=== PATIENT | male | born 1985 ===

== ENCOUNTER 2017-01-04 11:52 | Emergency (ER) | payer OTHER ==
[2017-01-04 11:56] VITALS: BMI 31.3
[2017-01-04 11:59] VITALS: RESP 18; O2SAT 100
[2017-01-04] MEDS ORDERED: Sodium Chloride 0.9% 1,000 ML IV ONE (12:33)
--- NOTE | 2017-01-04 12:33 | C.PDOC ---
History Of Present Illness 32 year old male presents to the emergency department with complaints of intermittent LLQ pain that radiates to groin for two days. Patient notes difficulty urinating and loose bowel today. He denies fever, chills, nausea, vomiting, back pain, or any similar symptoms. Time Seen by Provider: 01/04/17 11:55 Chief Complaint (Nursing): Abdominal Pain History Per: Patient History/Exam Limitations: no limitations Onset/Duration Of Symptoms: Days (2 days ) Current Symptoms Are (Timing): Still Present Location Of Pain/Discomfort: LLQ Radiation Of Pain To:: Other (groin) Quality Of Discomfort: "Pain" Associated Symptoms: Diarrhea, Other (difficulty urinating). denies: Fever, Chills, Nausea, Vomiting Last Bowel Movement: Today Recent travel outside of the [place]: No Past Medical History Reviewed: Historical Data, Nursing Documentation, Vital Signs Vital Signs: Last Vital Signs Temp 98.0 F 01/04/17 11:58 Pulse 70 01/04/17 11:58 Resp 18 01/04/17 11:58 BP 143/78 01/04/17 11:58 Pulse Ox 100 01/04/17 16:47 Surgical History: Appendectomy (2013) - [employer] Procedures LAPAROSCOP APPENDECTOMY (01/04/14) TETANUS TOXOID ADMINIST (11/29/13) Family History: States: Unknown Family Hx - Social History Hx Tobacco Use: No Hx Alcohol Use: No Hx Substance Use: No - Immunization History Hx Tetanus Toxoid Vaccination: No Hx Influenza Vaccination: No Hx Pneumococcal Vaccination: No Review Of Systems Constitutional: Negative for: Fever, Chills Cardiovascular: Negative for: Chest Pain Respiratory: Negative for: Shortness of Breath Gastrointestinal: Positive for: Abdominal Pain (LLQ pain ). Negative for: Nausea, Vomiting Genitourinary: Positive for: Other (difficulty urinating) Musculoskeletal: Positive for: Other (groin pain radiating from LLQ pain ) Physical Exam - Physical Exam Appears: Non-toxic, No Acute Distress Skin: Warm, Dry Head: Atraumatic Eye(s): bilateral: Normal Inspection, PERRL, EOMI Oral Mucosa: Moist Chest: Symmetrical, No Deformity Cardiovascular: Rhythm Regular Respiratory: Normal Breath Sounds, No Rales, No Rhonchi, No Wheezing Gastrointestinal/Abdominal: Bowel Sounds (hypoactive bowel sounds ), Soft, Tenderness (mild left lower abdominal tenderness near pelvis ), No Distention, No Guarding, No Rebound Extremity: Normal ROM, No Tenderness ED Course And Treatment - Laboratory Results Result Diagrams: 01/04/17 12:41 01/04/17 12:41 O2 Sat by Pulse Oximetry: 100 (room air ) - CT Scan/US CT Abdomen and Pelvis without intravenous contrast Other Rad Studies (CT/US): Read By Radiologist, Radiology Report Reviewed CT/US Interpretation: LOWER THORAX: The lung bases are clear. LIVER: The liver is enlarged and measures 24 cm in craniocaudad dimension. There is diffuse low-attenuation in the liver. No focal mass or ductal dilatation. GALLBLADDER AND BILE DUCTS: There are no calcified gallstones, wall thickening or pericholecystic fluid. PANCREAS: The pancreas is normal in size. No gross lesion or ductal dilatation. SPLEEN: There is borderline splenomegaly. ADRENALS: Both adrenal glands are normal in size without discrete nodule. . KIDNEYS AND URETERS: Both kidneys are normal in size without hydronephrosis or nephrolithiasis. The ureters are not dilated. VASCULATURE: No aortic aneurysm. BOWEL: There is mild dilatation of fluid-filled proximal jejunal loops. The mid and distal small bowel loops are normal in caliber. . There is mild left colonic diverticulosis without CT evidence for acute diverticulitis. APPENDIX: There are surgical clips in the right lower quadrant adjacent to this from in keeping with prior appendectomy. PERITONEUM: No free fluid. No free air. LYMPH NODES: There are prominent subcentimeter mesenteric lymph nodes in the right side of the abdomen. BLADDER: Normal in appearance. REPRODUCTIVE: The prostate gland is normal in size. BONES: No acute fracture. Within normal limits for the patient's age. OTHER FINDINGS: None. IMPRESSION: 1. Mild dilatation of fluid-filled proximal jejunal loops could be related to nonspecific infectious/ inflammatory enteritis. Prominent subcentimeter mesentery lymph nodes in the right abdomen could represent nonspecific reactive lymphadenitis. 2. Moderate hepatomegaly and hepatic steatosis. Borderline splenomegaly. 3. No evidence of nephrolithiasis or obstructive uropathy. Progress Note: Toradol and IV fluids given. CT abdomen and pelvis without contrast ordered. Medical Decision Making Medical Decision Making: pt reports pain decreased with toradol, non tender on re-exam of abdomen. will tx pt for enteritis/diverticuloisis with cipro and flagyl and f/u in med clinic next week. Disposition Counseled Patient/Family Regarding: Studies Performed, Diagnosis, Need For Followup, Rx Given - Disposition Referrals: [facility] [Outside] Disposition: HOME/ ROUTINE Disposition Time: 16:36 Condition: STABLE Additional Instructions: [place] los medicamentos segn lo prescrito. Seguimiento en la clnica mdica la pr xima semana-llamar para cinthya elder ,. [place] ibuprofeno para el dolor si es necesario. Vuelva a ER para cualquier dolor peor, fiebre, vmito. Prescriptions: Ciprofloxacin HCl [Cipro] 500 mg PO BID #14 tablet Ibuprofen [Motrin] 600 mg PO TID #30 tab Metronidazole [Flagyl] 500 mg PO TID #21 tablet Instructions: Diverticulitis (ED), Enteritis (ED) Forms: [employer] (Urdu) - Clinical Impression Clinical Impression: Enteritis, Diverticulosis of colon - Scribe Statement The provider has reviewed the documentation as recorded by the Scribe Olya Cuevas All medical record entries made by the Scribe were at my direction and personally dictated by me. I have reviewed the chart and agree that the record accurately reflects my personal performance of the history, physical exam, medical decision making, and the department course for this patient. I have also personally directed, reviewed, and agree with the discharge instructions and disposition.
[2017-01-04] MEDS ORDERED: Sodium Chloride 0.9% 1,000 ML ONE (12:42)
[2017-01-04 12:44] LABS: BASO # 0.1 K/uL (0.0-0.2); BASO % 1.1 % (0.0-2.0); EOS # 0.1 K/uL (0.0-0.7); EOS % 2.3 % (0.0-4.0); HEMATOCRIT 45.8 % (35.0-51.0); LYMPH # 1.9 K/uL (1.0-4.3); LYMPH % 30.6 % (20.0-40.0); MEAN CELL VOLUME 88.1 fL (80.0-94.0); MEAN CORPUSCULAR HEMOGLOBIN 31.3 pg (27.0-31.0); MEAN CORPUSCULAR HGB CONC 35.5 g/dL (33.0-37.0); MEAN PLATELET VOLUME 8.3 fL (7.2-11.7); MONO # 0.4 K/uL (0.0-0.8); MONO % 6.3 % (0.0-10.0); NRBC % 0.1 % (0.0-2.0); RED CELL DISTRIBUTION WIDTH 12.6 % (11.5-14.5); WHITE BLOOD COUNT 6.1 K/uL (4.8-10.8)
[2017-01-04 12:46] LABS: RBC URINE < 1 /hpf (0-3); URINE BILIRUBIN NEGATIVE (NEGATIVE); URINE BLOOD NEGATIVE (NEGATIVE); URINE COLOR Yellow (YELLOW); URINE GLUCOSE (UA) NORMAL (Normal); URINE KETONE NEGATIVE (NEGATIVE); URINE LEUKOCYTE ESTERASE NEG Leu/uL (Negative); URINE PROTEIN 1+ mg/dL (NEGATIVE); URINE UROBILINOGEN NORMAL mg/dL (0.2-1.0); WBC URINE < 1 /hpf (0-5)
[2017-01-04 12:52] LABS: CHLORIDE 99 mmol/L (98-107)
[2017-01-04 12:53] LABS: POTASSIUM 3.7 mmol/L (3.6-5.2); SODIUM 139 mmol/L (132-148)
[2017-01-04 12:55] LABS: ALB/GLOB RATIO 1.2 (1.0-2.1); AST/SGOT 42 U/L (17-59); BILIRUBIN,TOTAL 1.2 mg/dL (0.2-1.3); BLOOD UREA NITROGEN 14 mg/dL (9-20); CARBON DIOXIDE 25 mmol/L (22-30); GFR AFRICAN-AMERICAN > 60; TOTAL PROTEIN 7.6 g/dL (6.3-8.3)
[2017-01-04 12:56] LABS: ALKALINE PHOSPHATASE 77 U/L (38-126); ALT/SGPT 63 U/L (21-72); CALCIUM 8.6 mg/dl (8.6-10.4); GLUCOSE,RANDOM 106 mg/dL (75-110)
--- NOTE | 2017-01-04 15:32 | CT ---
PROCEDURE: CT Abdomen and Pelvis without intravenous contrast HISTORY: left flank and lower quad pain COMPARISON: 01/04/2014. TECHNIQUE: CT scan of the abdomen and pelvis was performed without administration of intravenous contrast. Oral contrast was not administered. Coronal and sagittal reformatted images were obtained. Radiation dose: Total exam DLP = 676.00 mGy-cm. This CT exam was performed using one or more of the following dose reduction techniques: Automated exposure control, adjustment of the mA and/or kV according to patient size, and/or use of iterative reconstruction technique. FINDINGS: LOWER THORAX: The lung bases are clear. LIVER: The liver is enlarged and measures 24 cm in craniocaudad dimension. There is diffuse low-attenuation in the liver. No focal mass or ductal dilatation. GALLBLADDER AND BILE DUCTS: There are no calcified gallstones, wall thickening or pericholecystic fluid. PANCREAS: The pancreas is normal in size. No gross lesion or ductal dilatation. SPLEEN: There is borderline splenomegaly. ADRENALS: Both adrenal glands are normal in size without discrete nodule. . KIDNEYS AND URETERS: Both kidneys are normal in size without hydronephrosis or nephrolithiasis. The ureters are not dilated. VASCULATURE: No aortic aneurysm. BOWEL: There is mild dilatation of fluid-filled proximal jejunal loops. The mid and distal small bowel loops are normal in caliber. . There is mild left colonic diverticulosis without CT evidence for acute diverticulitis. APPENDIX: There are surgical clips in the right lower quadrant adjacent to this from in keeping with prior appendectomy. PERITONEUM: No free fluid. No free air. LYMPH NODES: There are prominent subcentimeter mesenteric lymph nodes in the right side of the abdomen. BLADDER: Normal in appearance. REPRODUCTIVE: The prostate gland is normal in size. BONES: No acute fracture. Within normal limits for the patient's age. OTHER FINDINGS: None. IMPRESSION: 1. Mild dilatation of fluid-filled proximal jejunal loops could be related to nonspecific infectious/ inflammatory enteritis. Prominent subcentimeter mesentery lymph nodes in the right abdomen could represent nonspecific reactive lymphadenitis. 2. Moderate hepatomegaly and hepatic steatosis. Borderline splenomegaly. 3. No evidence of nephrolithiasis or obstructive uropathy.
[2017-01-04] MEDS ORDERED: metroNIDAZOLE IV 500 mg/100 ml 500 MG/100 ML BAG ONE (16:51)
[2017-01-04 17:12] VITALS: BP 138/74; PULSE 74; TEMP 98.2
== END 2017-01-04 17:11 | disposition home or self-care (01) ==
LOC: C.ER 11:52
DX: K57.30 Diverticulosis of large intestine without perforation or abscess without bleeding (principal); K52.9 Noninfective gastroenteritis and colitis, unspecified
CPT/HCPCS: 74176; 80053; 81001; 85025; 96361; 96374; 99285; J1885; J7040